=== PATIENT | male | born 1985 | race Caucasian/White ===

== ENCOUNTER 2019-01-15 18:07 | Emergency (ER) | payer BC ==
[2019-01-15] MEDS ORDERED: Acetaminophen/HYDROcodone 325-5 MG Tab PO ONE (18:45)
--- NOTE | 2019-01-15 18:55 | EDM.PDOC ---
<Lakshmi Pearson - Last Filed: 01/15/19 19:17> ED HPI GENERAL MEDICAL PROBLEM - General Chief Complaint: Upper Extremity Injury/Pain Stated Complaint: RT WRIST INJURY Time Seen by Provider: 01/15/19 18:35 Source of Information: Reports: Patient History Limitations: Reports: No Limitations - History of Present Illness INITIAL COMMENTS - FREE TEXT/NARRATIVE: 33 y/o male presents to emergency with chief complaints of right wrist and hand pain. He reports earlier this morning around 9 AM he slipped on a piece of ice falling backwards striking his hand. Patient reports pain increases with movement and flexion of his wrist and fourth and fifth fingers. Patient denies any neck, back or head pain. He states that he has not taken anything for pain since event. Patient reports he is right-handed. His PCP is Dr. Olivas Onset: Today, Sudden Onset Date: 01/15/19 Onset Time: 09:00 Duration: Getting Worse Location: Reports: Upper Extremity, Right Quality: Reports: Ache Severity: Mild Improves with: Reports: None Worsens with: Reports: Movement Associated Symptoms: Denies: Weakness Right Wrist Pain Score (Numeric/FACES): 8 - Related Data Allergies Allergy/AdvReac Type Severity Reaction Status Date / Time No Known Allergies Allergy Verified 01/15/19 18:35 Home Meds: Home Meds . [No Known Home Meds] 01/15/19 [History] Past Medical History Psychiatric History: Reports: ADHD Social & Family History - Tobacco Use Smoking Status *Q: Current Every Day Smoker Years of Tobacco use: 16 Packs/Tins Daily: 1 - Caffeine Use Caffeine Use: Reports: Coffee - Recreational Drug Use Recreational Drug Use: No Review of Systems - Review of Systems Review Of Systems: See Below Constitutional: Reports: No Symptoms Eyes: Reports: No Symptoms Ears: Reports: No Symptoms Nose: Reports: No Symptoms Mouth/Throat: Reports: No Symptoms Respiratory: Reports: No Symptoms Cardiovascular: Reports: No Symptoms GI/Abdominal: Reports: No Symptoms Genitourinary: Reports: No Symptoms Musculoskeletal: Reports: Hand Pain. Denies: Neck Pain, Shoulder Pain, Back Pain Skin: Reports: No Symptoms Neurological: Reports: No Symptoms. Denies: Headache, Tingling Psychiatric: Reports: No Symptoms ED EXAM, GENERAL - Physical Exam Exam: See Below Exam Limited By: No Limitations General Appearance: Alert, WD/WN, No Apparent Distress Head: Atraumatic, Normocephalic Neck: Normal Inspection, Supple, Non-Tender, Full Range of Motion Respiratory/Chest: No Respiratory Distress, Lungs Clear, Normal Breath Sounds, No Accessory Muscle Use, Chest Non-Tender Cardiovascular: Normal Peripheral Pulses, Regular Rate, Rhythm, No Edema, No Gallop, No JVD, No Murmur, No Rub Back Exam: Normal Inspection, Full Range of Motion Extremities: Normal Inspection, No Pedal Edema (Right wrist decreased range of motion due to pain, neurovascularly intact. Right fourth and fifth finger decreased range of motion due to pain neurovascularly intact.), Normal Capillary Refill Neurological: Alert, Oriented, CN II-XII Intact, Normal Cognition, Normal Gait, Normal Reflexes, No Motor/Sensory Deficits Psychiatric: Normal Affect, Normal Mood Skin Exam: Warm, Dry, Intact, Normal Color, No Rash Lymphatic: No Adenopathy Course - Vital Signs Last Recorded V/S: Last Vital Signs Temp 99 F 01/15/19 18:36 Pulse 117 H 01/15/19 18:36 Resp 16 01/15/19 18:36 BP 144/90 H 01/15/19 18:36 Pulse Ox 96 01/15/19 18:36 - Orders/Labs/Meds Meds: Medications Discontinued Medications Generic Name Dose Route Start Last Admin Trade Name Francia PRN Reason Stop Dose Admin Hydrocodone Bitart/Acetaminophen 1 tab 01/15/19 18:45 01/15/19 18:49 [place] 325-5 Mg PO 01/15/19 18:46 1 tab ONETIME ONE Administration - Re-Assessments/Exams Free Text/Narrative Re-Assessment/Exam: 01/15/19 19:16 Preliminary x-ray reveals no fracture or dislocation. I will discharge home with an Mihir wrap. Instructed patient to take [id number] Tylenol or ibuprofen as needed for pain. Instructed patient to follow up with his PCP. Encouraged to return to the emergency room for any new or acutely worsening symptoms. Departure - Departure Time of Disposition: 19:17 Disposition: Home, Self-Care 01 Condition: Good Clinical Impression: Right wrist sprain Qualifiers: Encounter type: initial encounter Qualified Code(s): S63.501A - Unspecified sprain of right wrist, initial encounter - Discharge Information *PRESCRIPTION DRUG MONITORING PROGRAM REVIEWED*: Not Applicable *COPY OF PRESCRIPTION DRUG MONITORING REPORT IN PATIENT SIRIA: Not Applicable Instructions: Wrist Sprain, Adult Referrals: Bg Olivas Jr, MD [Primary Care Provider] - Forms: ED Department Discharge Additional Instructions: You have been diagnosed with a right wrist sprain. He may take Tylenol or ibuprofen as needed for pain. He may use ice for 20 minutes at a time. Follow up with your PCP. Return to the emergency room for any new or acutely worsening symptoms. <Patrice Melgoza - Last Filed: 01/16/19 20:10> Course - Re-Assessments/Exams Free Text/Narrative Re-Assessment/Exam: 01/16/19 20:08 Patient evaluated and treated by DORA Pabon. I have also viewed Xrays, discussed sx and findings with Lakshmi and patient. I agree with hx, exam and treatment plan as documented.
--- NOTE | 2019-01-16 06:15 | CR ---
Right hand: Two views of the right hand were obtained. Comparison: No prior right hand exam. Joint spaces are preserved. Small fracture fragment is identified off the posterior triquetrum. This appears to be acute. No additional fracture or other abnormality is appreciated. Impression: 1. Small chip fracture off the posterior triquetrum. 2. No additional abnormality is appreciated on right hand exam. Diagnostic code #3
== END 2019-01-15 19:23 | disposition home or self-care (01) ==
LOC: JD.ED 18:07
DX: S63.501A Unspecified sprain of right wrist, initial encounter (principal); F17.210 Nicotine dependence, cigarettes, uncomplicated; W00.0XXA Fall on same level due to ice and snow, initial encounter
CPT/HCPCS: 73120; 99283; A9270